=== PATIENT | male | born 1975 | race Caucasian/White ===

== ENCOUNTER 2018-06-23 09:43 | Day surgery (SDC) | payer BC ==
[~2018-06-23 09:43] MED LIST: Acetaminophen/HYDROcodone 325-5 MG Tab PO PRN; Bupivacaine 0.25%/EPINEPHrine 1:200,000 10 ML SDV INJECT ONE; Bupivacaine 0.25%/EPINEPHrine 1:200,000 10 ML SDV ONE; Lactated Ringers 1,000 ML IV SCH; ceFAZolin 2 GM in Premix Bag 1 BAG IV ONE
--- NOTE | 2018-06-23 10:36 | PCM.PREANE ---
Preanesthetic Assessment - Anesthesia/Transfusion/Family Hx Anesthesia History: Prior Anesthesia Without Reaction Other Type of Anesthesia Reaction Comment: states he has a high tolerace to anesthesia, takes alot Family History of Anesthesia Reaction: No Transfusion History: No Prior Transfusion(s) - Review of Systems General: No Symptoms Pulmonary: No Symptoms Cardiovascular: No Symptoms Gastrointestinal: No Symptoms Neurological: No Symptoms Other: Reports: None - Physical Assessment O2 Sat by Pulse Oximetry: 95 Respiratory Rate: 16 Vital Signs: Last Vital Signs Temp 97.2 F 06/23/18 09:56 Pulse 71 06/23/18 09:56 Resp 16 06/23/18 09:56 BP 132/95 H 06/23/18 09:56 Pulse Ox 95 06/23/18 09:56 Height: 6 ft 3 in Weight: 134.717 kg ASA Class: 1 Mental Status: Alert & Oriented x3 Airway Class: Mallampati = 1 Dentition: Reports: Normal Dentition ROM/Head Extension: Full Lungs: Clear to Auscultation, Normal Respiratory Effort Cardiovascular: Regular Rate, Regular Rhythm - Allergies Allergies/Adverse Reactions: Allergies Allergy/AdvReac Type Severity Reaction Status Date / Time No Known Allergies Allergy Verified 06/21/18 10:26 - Blood Blood Available: No - Anesthesia Plan Pre-Op Medication Ordered: None - Acknowledgements Anesthesia Type Planned: General Anesthesia Pt an Appropriate Candidate for the Planned Anesthesia: Yes Alternatives and Risks of Anesthesia Discussed w Pt/Guardian: Yes Pt/Guardian Understands and Agrees with Anesthesia Plan: Yes PreAnesthesia Questionnaire HEENT History: Reports: Other (See Below) Other HEENT History: wears glasses Respiratory History: Reports: Other (See Below) Other Respiratory History: "possible sleep apnea" has not been tested Gastrointestinal History: Reports: Other (See Below) Other Gastrointestinal History: occasional heartburn Genitourinary History: Reports: Renal Calculus Musculoskeletal History: Reports: Fracture Other Musculoskeletal History: multiple fx's, fingers, rinbs, ankle, arm, leg and skull fx Neurological History: Reports: Concussion, Head Trauma, Other (See Below) Other Neuro History: head injury resulting in skull fracture Endocrine/Metabolic History: Reports: Obesity/BMI 30+ - Past Surgical History Head Surgeries/Procedures: Reports: None Male Surgical History: Reports: Lithotripsy (ESWL) Musculoskeletal Surgical History: Reports: Arthroscopic Knee Other Musculoskeletal Surgeries/Procedures:: rt knee scope x2 - SUBSTANCE USE Smoking Status *Q: Never Smoker Recreational Drug Use History: No - HOME MEDS Home Medications: Home Meds . [No Known Home Meds] 06/21/18 [History] - CURRENT (IN HOUSE) MEDS Current Meds: Current Medications Hydrocodone Bitart/Acetaminophen ([place] 325-5 Mg) 1 - 2 tab PO Q4H PRN PRN Reason: Pain Lactated Ringer's (Ringers, Lactated) 1,000 mls @ 125 mls/hr IV ASDIRECTED SHARYN Last Admin: 06/23/18 10:01 Dose: 125 mls/hr Discontinued Medications Bupivacaine HCl/Epinephrine Bitart (Marcaine 0.25%/Epinephrine 1:200,000) 10 ml INJECT ONETIME ONE Stop: 06/23/18 08:01 Bupivacaine HCl/Epinephrine Bitart (Marcaine 0.25%/Epinephrine 1:200,000) Confirm Administered Dose 10 ml .ROUTE .STK-MED ONE Stop: 06/23/18 07:23 Cefazolin Sodium/Dextrose 2 gm (/ Premix) 50 mls @ 100 mls/hr IV ONETIME ONE Stop: 06/23/18 08:29
[2018-06-23] MEDS ORDERED: fentaNYL 100 MCG/2 ML SDV ONE ×2 (10:51→11:32)
[2018-06-23] MEDS ORDERED: Propofol 200 MG/20 ML SDV ONE ×2 (10:51→11:21)
[2018-06-23] MEDS ORDERED: Midazolam 1 MG/ML 2 ML SDV ONE (10:51)
[2018-06-23] MEDS ORDERED: Lidocaine 2% 5 ML SDV ONE (10:52)
[2018-06-23] MEDS ORDERED: Albuterol 0.083% 2.5 MG/3 ML Neb Soln NEB PRN (11:02)
[2018-06-23] MEDS ORDERED: 50% Dextrose in Water 50 ML Syringe IVPUSH PRN (11:02)
[2018-06-23] MEDS ORDERED: Naloxone 0.4 MG/ML Syringe IVPUSH PRN (11:02)
[2018-06-23] MEDS ORDERED: Atropine 1 MG/ML SDV IVPUSH PRN ×2 (11:02)
[2018-06-23] MEDS ORDERED: EPINEPHrine 1 MG/ML SDV IVPUSH PRN (11:02)
[2018-06-23] MEDS ORDERED: Sodium Chloride 0.9% 20 ML ONE (11:17)
[2018-06-23] MEDS ORDERED: ceFAZolin 1 GM Vial ONE (11:17)
[2018-06-23] MEDS ORDERED: Ondansetron 4 MG/2 ML SDV ONE (11:31)
[2018-06-23] MEDS ORDERED: Ketorolac 30 MG/ML SDV ONE (11:31)
[2018-06-23] MEDS ORDERED: Dexamethasone 4 MG/ML 5 ML MDV ONE (11:31)
[2018-06-23] MEDS: fentaNYL 100 MCG/2 ML SDV IVPUSH PRN ×2 (12:39→12:51)
--- NOTE | 2018-06-23 13:06 | PCM.POSTAN ---
POST ANESTHESIA ASSESSMENT - MENTAL STATUS Mental Status: Alert, Oriented - RESPIRATORY Respiratory Status: Respiratory Rate WNL, Airway Patent, O2 Saturation Stable - CARDIOVASCULAR CV Status: Pulse Rate WNL, Blood Pressure Stable - GASTROINTESTINAL GI Status: No Symptoms - POST OP HYDRATION Hydration Status: Adequate & Stable
--- NOTE | 2018-06-23 13:07 | PCM48HPAN ---
Post Anesthesia Note - EVALUATION WITHIN 48HRS OF ANESTHETIC Vital Signs in Normal Range: Yes Patient Participated in Evaluation: Yes Respiratory Function Stable: Yes Airway Patent: Yes Cardiovascular Function Stable: Yes Hydration Status Stable: Yes Pain Control Satisfactory: Yes Nausea and Vomiting Control Satisfactory: Yes Mental Status Recovered: Yes Resp Rate: 11
--- NOTE | 2018-06-24 07:40 | PCM.OPNOTE ---
- General Post-Op/Procedure Note Date of Surgery/Procedure: 06/23/18 Operative Procedure(s): left small finger PIP joint contracture release, tenolysis flexor tendons left small finger, repair central slip of extensor tendon left small finger and pin fixation for internal splinting left small finger. Pre Op Diagnosis: left small finger boutinere deformity with volar plate and PIP joint contracture - static Post-Op Diagnosis: Same Anesthesia Technique: General LMA, Local Primary Surgeon: Dionne Wall Operation Shift Supervisor: Meghan Torre Complications: None Condition: Good Free Text/Narrative:: Intake & Output 06/23/18 06/23/18 06/24/18 15:59 23:59 07:59 Intake Total 1100 Balance 1100
--- NOTE | 2018-06-26 23:43 | OR ---
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 PROCEDURE: 1. Left small finger PIP joint contracture release with release of the volar plate. 2. Tenolysis of flexor tendons to the left small finger, both the flexor digitorum superficialis and flexor digitorum profundus. 3. Repair of the central slip extensor tendon injury of the left small finger. 4. Pin fixation for internal splinting in the left small finger PIP joint. NUCLEAR REACTOR TECHNICIAN: DANIEL Blanco REASON FOR AND ROLE OF NUCLEAR REACTOR TECHNICIAN: Retraction, prepping, draping, positioning and closure assistance. ANESTHESIA: General LMA with local. INDICATIONS: Mr. 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 Risks and benefits of repair were discussed with him and he was in agreement to proceed. Risks were including, but not limited to, bleeding, infection, damage to underlying or overlying structures, possible need for future interventions, possible scarring. PROCEDURE IN DETAIL: After informed consent was obtained and placed on the chart, the patient was brought to the operating theater and laid in supine position. Attention was then paid after time-out was complete to confirm side and site. Once confirmed, the arm was prepped and draped in the normal fashion and 0.25% Marcaine with epinephrine was used in a field block. Once adequately anesthetized, the arm was exsanguinated and tourniquet was insufflated to 200 mmHg. Attention was then paid to the volar plate release. First, dissection was then carried in a Nuno style fashion through the skin and subcutaneous tissues with significant care to protect the neurovascular bundles. The flexor tendons were located significantly in scar tissue. These had to be freed appropriately and passed through range of motion to remove them from the adherent scar tissue surrounding both tendons. Once adequate tenolysis was completed of the flexor tendons, we could then move the tendons out of the way to access the volar plate. The volar plate was released using a #15 blade at the proximal aspect. Not complete release was appreciated and thus the checkrein ligament also had to be released. Once this was completed, the finger was put through range of motion and allowed to maintain in a straight position. Once adequate release, this wound was closed using a 5-0 nylon stitch in a horizontal mattress fashion. Attention was then paid to the dorsum of the finger and a curvilinear incision was made around the knuckle itself and dissection was carried through the skin and subcutaneous tissues until location of the central slip. It was significantly attenuated with migration of the extensor tendon laterally. The central slip was transected. There was a significant amount of scar tissue here. Fortunately, this precluded the need for tendon graft and thus the two sides of the extensor tendon were brought together using a 4-0 FiberWire stitch and scar tissue was also used for reinforcement over the top of this and this was closed in an interrupted and running fashion for a tendinous repair. Once this was completed, a 0.45 K-wire was then placed longitudinally down the DIP joint and PIP joint to allow the finger to be maintained in a straight position. There was significant memory of the joint and already was trying to contract despite complete release. Passive range of motion was intact. Once adequately fixated, the K-wire was dressed with Jurgan ball and the skin incisions again were closed with a 5-0 nylon stitch in a horizontal mattress fashion. Once adequately closed, they were dressed with Xeroform, fluffs, and a short-arm ulnar gutter splint. The patient tolerated this well. All counts and needles were correct at the end of the case. FOLLOWUP INSTRUCTIONS: The patient will see us in clinic in 10 to 14 days for custom splinting, sooner if any problems, questions, or concerns. The patient was given a prescription for pain control. CLARA / JENNIFER /[id number]
== END 2018-06-23 14:17 | disposition home or self-care (01) ==
LOC: MW.SDS 09:43
PROVIDERS: ATTEND Plastic Surgery
DX: M20.022 Boutonniere deformity of left finger(s) (principal); M24.542 Contracture, left hand; M54.16 Radiculopathy, lumbar region; E66.9 Obesity, unspecified; Z68.37 Body mass index [BMI] 37.0-37.9, adult
CPT/HCPCS: 26426; 26440; 26525; A9270; J0690; J1100; J1885; J2001; J2250; J2405; J2704; J3010; J3490; J7120

== ENCOUNTER 2020-08-03 13:36 | Emergency (ER) | payer BC ==
--- NOTE | 2020-08-03 13:39 | EDM.PDOC ---
ED HPI GENERAL MEDICAL PROBLEM - General Chief Complaint: General Stated Complaint: HIGH BP Time Seen by Provider: 08/03/20 13:38 Source of Information: Reports: Patient History Limitations: Reports: No Limitations - History of Present Illness INITIAL COMMENTS - FREE TEXT/NARRATIVE: 44-year-old male presents for high blood pressure. Patient notes that he was diagnosed with high blood pressure last week but was not started on any medications. 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 Was taking "a handful" of supplements and has gained roughly 30lbs in last 30 days. Stopped supplements yesterday. Noted new onset LE swelling yesterday which has since resolved. Prior to arrival he noted shortness of breath, headache, back pain. Took blood pressure and it was in the systolic 180s prompting him to seek medical attention. Denies chest pain. Head Pain Score (Numeric/FACES): 8 - Related Data Allergies Allergy/AdvReac Type Severity Reaction Status Date / Time No Known Allergies Allergy Verified 08/03/20 13:45 Home Meds: Home Meds . [No Known Home Meds] 08/03/20 [History] Past Medical History HEENT History: Reports: Other (See Below) Other HEENT History: wears glasses Respiratory History: Reports: Other (See Below) Other Respiratory History: "possible sleep apnea" has not been tested Gastrointestinal History: Reports: Other (See Below) Other Gastrointestinal History: occasional heartburn Genitourinary History: Reports: Renal Calculus Musculoskeletal History: Reports: Fracture Other Musculoskeletal History: multiple fx's, fingers, rinbs, ankle, arm, leg and skull fx Neurological History: Reports: Concussion, Head Trauma, Other (See Below) Other Neuro History: head injury resulting in skull fracture Endocrine/Metabolic History: Reports: Obesity/BMI 30+ - Past Surgical History Head Surgeries/Procedures: Reports: None Male Surgical History: Reports: Lithotripsy (ESWL) Musculoskeletal Surgical History: Reports: Arthroscopic Knee Other Musculoskeletal Surgeries/Procedures:: rt knee scope x2 ED ROS GENERAL - Review of Systems Review Of Systems: Comprehensive ROS is negative, except as noted in HPI. ED EXAM, GENERAL - Physical Exam Exam: See Below Exam Limited By: No Limitations General Appearance: Alert, WD/WN, No Apparent Distress Throat/Mouth: Normal Voice, No Airway Compromise Head: Atraumatic, Normocephalic Neck: Normal Inspection Respiratory/Chest: No Respiratory Distress, Lungs Clear, Normal Breath Sounds, No Accessory Muscle Use Cardiovascular: Normal Peripheral Pulses, Regular Rate, Rhythm, No Edema Extremities: Normal Inspection Neurological: Alert, CN II-XII Intact, Normal Gait, No Motor/Sensory Deficits Psychiatric: Normal Affect, Normal Mood Skin Exam: Warm, Dry, Intact, Normal Color #1 Interpretation EKG Date: 08/03/20 Time: 13:48 Rhythm: NSR Rate (Beats/Min): 87 [place]: Normal P-Wave: Present QRS: Normal ST-T: Normal QT: Normal VA/PQ Interval: 160 Comparison: NA - No Prior EKG EKG Interpretation Comments: no ischemic changes, poor baseline Course - Vital Signs Last Recorded V/S: Last Vital Signs Temp 98 F 08/03/20 13:46 Pulse 94 08/03/20 14:25 Resp 18 08/03/20 14:25 BP 149/94 H 08/03/20 14:25 Pulse Ox 95 08/03/20 14:25 - Orders/Labs/Meds Orders: Active Orders 24 hr Category Date Time Status EKG Documentation Completion [RC] STAT Care 08/03/20 13:42 Active CORONAVIRUS COVID-19 ALE [MOLEC] Stat Lab 08/03/20 14:33 Received Sodium Chloride 0.9% [Saline Flush] Med 08/03/20 13:42 Active 10 ml FLUSH ASDIRECTED PRN Sodium Chloride 0.9% [Saline Flush] Med 08/03/20 13:42 Active 2.5 ml FLUSH ASDIRECTED PRN Saline Lock Insert [OM.PC] Stat Oth 08/03/20 13:42 Ordered Medication Orders Sodium Chloride (Sodium Chloride 0.9% 10 Ml Syringe) 10 ml FLUSH ASDIRECTED PRN PRN Reason: Keep Vein Open Last Admin: 08/03/20 14:22 Dose: 10 ml Documented by: THOMAS Sodium Chloride (Sodium Chloride 0.9% 2.5 Ml Syringe) 2.5 ml FLUSH ASDIRECTED PRN PRN Reason: Keep Vein Open Last Admin: 08/03/20 14:22 Dose: 2.5 ml Documented by: THOMAS Labs: Laboratory Tests 08/03/20 08/03/20 Range/Units 13:52 13:52 WBC 7.07 (4.0-11.0) K/uL RBC 5.46 (4.50-5.90) M/uL Hgb 16.4 (13.0-17.0) g/dL Hct 48.6 (38.0-50.0) % MCV 89.0 (80.0-98.0) fL MCH 30.0 (27.0-32.0) pg MCHC 33.7 (31.0-37.0) g/dL RDW Std Deviation 43.6 (28.0-62.0) fl RDW Coeff of John 13 (11.0-15.0) % Plt Count 276 (150-400) K/uL MPV 9.60 (7.40-12.00) fL Neut % (Auto) 75.2 (48.0-80.0) % Lymph % (Auto) 12.9 L (16.0-40.0) % [place] % (Auto) 10.0 (0.0-15.0) % Eos % (Auto) 1.3 (0.0-7.0) % Baso % (Auto) 0.6 (0.0-1.5) % Neut # (Auto) 5.3 (1.4-5.7) K/uL Lymph # (Auto) 0.9 (0.6-2.4) K/uL [place] # (Auto) 0.7 (0.0-0.8) K/uL Eos # (Auto) 0.1 (0.0-0.7) K/uL Baso # (Auto) 0.0 (0.0-0.1) K/uL Sodium 139 (136-148) mmol/L Potassium 4.4 (3.5-5.1) mmol/L Chloride 103 (98-107) mmol/L Carbon Dioxide 28.1 (21.0-32.0) mmol/L BUN 16 (7.0-18.0) mg/dL Creatinine 1.2 (0.8-1.3) mg/dL Est Cr Clr Drug Dosing 93.89 mL/min Estimated GFR (MDRD) > 60.0 ml/min Glucose 124 H (74-106) mg/dL Calcium 8.7 (8.5-10.1) mg/dL Total Bilirubin 0.7 (0.2-1.0) mg/dL AST 82 H (15-37) IU/L ALT 97 H (14-63) IU/L Alkaline Phosphatase 62 (46-116) U/L Creatine Kinase 350 H (26-308) U/L Troponin I 0.177 H* (0.000-0.056) ng/mL Total Protein 7.2 (6.4-8.2) g/dL Albumin 3.4 (3.4-5.0) g/dL Globulin 3.8 (2.6-4.0) g/dL Albumin/Globulin Ratio 0.9 (0.9-1.6) Meds: Medications Generic Name Dose Route Start Last Admin Trade Name Freq PRN Reason Stop Dose Admin Sodium Chloride 10 ml 08/03/20 13:42 08/03/20 14:22 Sodium Chloride 0.9% 10 Ml Syringe FLUSH 10 ml ASDIRECTED PRN Administration Keep Vein Open Sodium Chloride 2.5 ml 08/03/20 13:42 08/03/20 14:22 Sodium Chloride 0.9% 2.5 Ml Syringe FLUSH 2.5 ml ASDIRECTED PRN Administration Keep Vein Open Discontinued Medications Generic Name Dose Route Start Last Admin Trade Name Freq PRN Reason Stop Dose Admin Ketorolac Tromethamine 15 mg 08/03/20 13:53 08/03/20 14:21 Ketorolac 30 Mg/Ml Sdv IVPUSH 08/03/20 13:54 15 mg ONETIME ONE Administration Labetalol HCl 10 mg 08/03/20 13:53 08/03/20 14:22 Labetalol 100 Mg/20 Ml Mdv IVPUSH 08/03/20 13:54 10 mg ONETIME ONE Administration Protocol - Re-Assessments/Exams Free Text/Narrative Re-Assessment/Exam: 08/03/20 13:56 We will get basic labs including cardiac enzymes, total CPK. EKG is nonische monique. Will get chest x-ray. Will give small dose labetalol, Toradol. 08/03/20 14:39 Patient's troponin elevated at 0.177. Will transfer to [facility] for further work-up. On repeat history with patient alone in the room he notes that he is on chronic testosterone replacement therapy but no new steroids. Departure - Departure Time of Disposition: 14:40 Disposition: DC/Tfer to Acute Hospital 02 Condition: Fair Clinical Impression: NSTEMI (non-ST elevated myocardial infarction) - Discharge Information Referrals: Dimitri Tidwell MD [Primary Care Provider] - Forms: ED Department Discharge Sepsis Event Note (ED) - Focused Exam Vital Signs: Vital Signs Temp Pulse Resp BP Pulse Ox 08/03/20 14:25 94 18 149/94 H 95 08/03/20 13:46 98 F 91 18 159/106 H 97 - My Orders Last 24 Hours: My Active Orders 08/03/20 13:42 EKG Documentation Completion [RC] STAT Sodium Chloride 0.9% [Saline Flush] 10 ml FLUSH ASDIRECTED PRN Sodium Chloride 0.9% [Saline Flush] 2.5 ml FLUSH ASDIRECTED PRN Saline Lock Insert [OM.PC] Stat 08/03/20 14:33 CORONAVIRUS COVID-19 ALE [MOLEC] Stat - Assessment/Plan Last 24 Hours: My Active Orders 08/03/20 13:42 EKG Documentation Completion [RC] STAT Sodium Chloride 0.9% [Saline Flush] 10 ml FLUSH ASDIRECTED PRN Sodium Chloride 0.9% [Saline Flush] 2.5 ml FLUSH ASDIRECTED PRN Saline Lock Insert [OM.PC] Stat 08/03/20 14:33 CORONAVIRUS COVID-19 ALE [MOLEC] Stat
[2020-08-03] MEDS ORDERED: Sodium Chloride 0.9% 2.5 ML Syringe FLUSH PRN (13:42)
[2020-08-03] MEDS ORDERED: Sodium Chloride 0.9% 10 ML Syringe FLUSH PRN (13:42)
[2020-08-03] MEDS ORDERED: Ketorolac 30 MG/ML SDV IVPUSH ONE (13:53)
[2020-08-03] MEDS ORDERED: Labetalol 100 MG/20 ML MDV IVPUSH ONE ×2 (13:53→14:47)
[2020-08-03 14:21] LABS: BLOOD UREA NITROGEN,BUN 16 mg/dL (7.0-18.0); CARBON DIOXIDE,CO2 28.1 mmol/L (21.0-32.0); CHLORIDE,CL 103 mmol/L (98-107); GLUCOSE RANDOM 124 mg/dL (74-106); POTASSIUM,K 4.4 mmol/L (3.5-5.1); SODIUM,NA 139 mmol/L (136-148)
--- NOTE | 2020-08-03 14:28 | CR ---
INDICATION: High blood pressure, shortness of breath TECHNIQUE: Chest 1 view. COMPARISON: None available FINDINGS: The heart is normal in size. The pulmonary vasculature is within normal limits. The lungs are clear. The bones are unremarkable. IMPRESSION: No acute process. Dictated by Cecily Baker MD @ Aug 03 2020 2:25PM Signed by Dr. Cecily Baker @ Aug 03 2020 2:26PM
== END 2020-08-03 15:30 ==
LOC: MW.ED 13:36
DX: I21.4 Non-ST elevation (NSTEMI) myocardial infarction (principal); E66.9 Obesity, unspecified; Z68.29 Body mass index [BMI] 29.0-29.9, adult
CPT/HCPCS: 36415; 71045; 80053; 82550; 84484; 85025; 87635; 93005; 96374; 96375; 99285; J1885; J3490; U0002

== ENCOUNTER 2021-01-17 10:48 | Emergency (ER) | payer BC ==
--- NOTE | 2021-01-17 11:12 | EDM.PDOC ---
ED HPI GENERAL MEDICAL PROBLEM - General Chief Complaint: General Stated Complaint: CONGESTION Time Seen by Provider: 01/17/21 10:56 - History of Present Illness INITIAL COMMENTS - FREE TEXT/NARRATIVE: 45-year-old male presenting with 3 to 4 weeks of sore throat and cough productive of sputum that is now faintly red-tinged. No fevers. Symptoms are associated with hoarse voice. No fevers no neck pain or stiffness no significa nt shortness of breath. Patient states that symptoms started when he was traveling and then got worse when he went to altitude. He has had persistent productive cough since that time. He denies prior history of asthma but does note a history of pneumonia in the past. Patient had Covid approximately a year ago he has no myalgias vomiting or any other symptoms. Symptoms are constant they are without exacerbating or alleviating factors radiation or other associated symptoms and he has not been evaluated for the symptoms since they started. Left Lower Abdomen Pain Score (Numeric/FACES): 2 - Related Data Allergies Allergy/AdvReac Type Severity Reaction Status Date / Time No Known Allergies Allergy Verified 01/17/21 11:00 Home Meds: Home Meds Albuterol Sulfate [Albuterol Sulfate HFA] 2 puff INH Q4H 5 Days #1 ea 01/17/21 [Rx] Pantoprazole [ProTONIX] 40 mg PO DAILY 01/17/21 [History] predniSONE 40 mg PO WITHBREAKFAST 5 Days #10 tab 01/17/21 [Rx] Past Medical History - Past Health History Medical/Surgical History: Denies Medical/Surgical History HEENT History: Reports: Other (See Below) Other HEENT History: wears glasses Respiratory History: Reports: Other (See Below) Other Respiratory History: "possible sleep apnea" has not been tested Gastrointestinal History: Reports: Other (See Below) Other Gastrointestinal History: occasional heartburn Genitourinary History: Reports: Renal Calculus Musculoskeletal History: Reports: Fracture Other Musculoskeletal History: multiple fx's, fingers, rinbs, ankle, arm, leg and skull fx Neurological History: Reports: Concussion, Head Trauma, Other (See Below) Other Neuro History: head injury resulting in skull fracture Endocrine/Metabolic History: Reports: Obesity/BMI 30+ - Infectious Disease History Infectious Disease History: Reports: None - Past Surgical History Head Surgeries/Procedures: Reports: None Male Surgical History: Reports: Lithotripsy ([facility]) Musculoskeletal Surgical History: Reports: Arthroscopic Knee Other Musculoskeletal Surgeries/Procedures:: rt knee scope x2 Social & Family History - Tobacco Use Tobacco Use Status *Q: Never Tobacco User - Caffeine Use Caffeine Use: Reports: None - Recreational Drug Use Recreational Drug Use: No ED ROS GENERAL - Review of Systems Review Of Systems: See Below Free Text/Narrative/Comment: General: No fever. Skin: No rash. Eyes: No vision problems. ENT: No sore throat. Neck: No neck stiffness. Respiratory: Per HPI Cardiac: No chest pain. Gastrointestinal: No nausea, vomiting or abdominal pain. Urinary: No dysuria. Musculoskeletal: No myalgias/arthralgias. Neurologic: No headache. ED EXAM, GENERAL - Physical Exam Exam: See Below Free Text/Narrative:: General Appearance: No acute distress, appears comfortable Skin: No rash HEENT: Normocephalic/atraumatic, sclera anicteric, mucous membranes moist Neck: Normal range of motion Chest and Lungs: Normal work of breathing, faint end expiratory wheezing in the bilateral bases faint rhonchi as well Cardiovascular: Regular rate and rhythm, no murmur Abdomen: Soft, non-tender Back: Normal Musculoskeletal: No edema or tenderness Neurologic: Awake, alert, no obvious deficits, moving all extremities Psychiatric: Appropriate, cooperative Course - Vital Signs Last Recorded V/S: Last Vital Signs Temp 98 F 01/17/21 11:01 Pulse 78 01/17/21 11:01 Resp 18 01/17/21 11:01 BP 144/97 H 01/17/21 11:01 Pulse Ox 96 01/17/21 11:01 - Orders/Labs/Meds Orders: Active Orders 24 hr Category Date Time Status Chest 2V [CR] Stat Exams 01/17/21 11:08 Taken Departure - Departure Time of Disposition: 12:15 Disposition: Home, Self-Care 01 Condition: Good Clinical Impression: Bronchitis - Discharge Information *PRESCRIPTION DRUG MONITORING PROGRAM REVIEWED*: Not Applicable *COPY OF PRESCRIPTION DRUG MONITORING REPORT IN PATIENT PANTERA: Not Applicable Prescriptions: Albuterol Sulfate [Albuterol Sulfate HFA] 2 puff INH Q4H 5 Days #1 ea predniSONE 40 mg PO WITHBREAKFAST 5 Days #10 tab Instructions: Acute Bronchitis, Adult, [id number] Forms: ED Department Discharge Additional Instructions: Your chest x-ray does not show any pneumonia based on my evaluation. I am still waiting for the radiologist to officially read it. If they disagree then that there is a pneumonia present I will call you and send a prescription for an antibiotic to the pharmacy. I recommend that you take 2 puffs from the albuterol inhaler every 4-6 hours while you are awake for the next 5 days and that you take 40 mg of prednisone once daily for the next 5 days. If your symptoms persist please follow-up with your primary care doctor if you do not have a primary care doctor you can be seen one of the clinics listed below. [facility] [address] [place] [address] [id number] [address] [id number] The following information is given to patients seen in the emergency department who are being discharged to home. This information is to outline your options for follow-up care. We provide all patients seen in our emergency department with a follow-up referral. The need for follow-up, as well as the timing and circumstances, are variable depending upon the specifics of your emergency department visit. If you don't have a primary care physician on staff, we will provide you with a referral. We always advise you to contact your personal physician following an emergency department visit to inform them of the circumstance of the visit and for follow-up with them and/or the need for any referrals to a consulting specialist. The emergency department will also refer you to a specialist when appropriate. This referral assures that you have the opportunity for follow-up care with a specialist. All of these measure are taken in an effort to provide you with optimal care, which includes your follow-up. Under all circumstances we always encourage you to contact your private physician who remains a resource for coordinating your care. When calling for follow-up care, please make the office aware that this follow-up is from your recent emergency room visit. If for any reason you are refused follow-up, please contact the [facility] Emergency Department at and asked to speak to the emergency department charge nurse. Sepsis Event Note (ED) - Evaluation Sepsis Screening Result: No Definite Risk - Focused Exam Vital Signs: Vital Signs Temp Pulse Resp BP Pulse Ox 01/17/21 11:01 98 F 78 18 144/97 H 96 - My Orders Last 24 Hours: My Active Orders 01/17/21 11:08 Chest 2V [CR] Stat - Assessment/Plan Last 24 Hours: My Active Orders 01/17/21 11:08 Chest 2V [CR] Stat Assessment:: 45-year-old male presenting with signs and symptoms most consistent with a bronchitis versus pneumonia. Chest x-ray to evaluate for any findings of pneumonia if there is pneumonia on x-ray then would start antibiotics. If not then would do burst of prednisone and albuterol inhaler. No fever no other symptoms that would suggest Covid and patient has been sick for nearly a month he also had diagnosed Covid a year ago. No significant abdominal symptoms no findings that suggest meningitis or encephalitis he does have a bit of a hoarse voice but this is related to his coughing he has no stridor he has no submental or sublingual swelling no trismus nothing that suggest a deep space infection of the head or neck. He is nontoxic and clinically well-appearing with good oxygenation. 1215: Con't to await CXR read. No focal infiltrate or pneumothorax based on my preliminary interpretation. Will send Rx for albuterol inhaler and prednisone. If CXR is over read as PNA then will call in an Rx. Patient agreeable with plan of care.
--- NOTE | 2021-01-17 12:21 | CR ---
INDICATION: Persistent cough. Bibasilar wheezing. COMPARISON: : 03 August 2020 TECHNIQUE: Two view chest. FINDINGS: The lungs are clear. The heart, mediastinum and pulmonary vessels are of normal size. There is no evidence of pleural disease. IMPRESSION: Negative chest. Dictated by Jonah Sultana MD @ 01/17/2021 12:20:19 PM (Electronically Signed)
== END 2021-01-17 12:26 | disposition home or self-care (01) ==
LOC: MW.ED 10:48
DX: J40 Bronchitis, not specified as acute or chronic (principal); E66.9 Obesity, unspecified; Z68.38 Body mass index [BMI] 38.0-38.9, adult
CPT/HCPCS: 71046; 71046-26; 99283-25

== ENCOUNTER 2023-10-22 11:09 | Emergency (ER) | payer BC ==
[2023-10-22 11:53] LABS: BASOPHILS ABSOLUTE AUTO 0.04 K/uL (0.00-0.20); BASOPHILS PERCENT AUTO 0.6 % (0.0-1.0); EOSINOPHILS ABSOLUTE AUTO 0.03 K/uL (0.00-0.45); EOSINOPHILS PERCENT AUTO 0.5 % (0.0-6.0); HEMATOCRIT 45.5 % (42.0-52.0); HEMOGLOBIN 15.5 g/dL (14.0-18.0); IMMATURE GRAN ABSOLUTE AUTO 0.01 K/uL (0.00-0.05); IMMATURE GRAN PERCENT AUTO 0.2 % (0.0-0.4); LYMPHOCYTES ABSOLUTE AUTO 0.78 K/uL (1.00-4.80); LYMPHOCYTES PERCENT AUTO 12.1 % (24.0-44.0); MEAN CORPUSCULAR HEMOGLOBIN 31.3 pg (28.0-32.0); MEAN CORPUSCULAR HGB CONC 34.1 g/dL (32.0-36.0); MEAN CORPUSCULAR VOLUME 91.7 fL (83.0-99.0); MEAN PLATELET VOLUME 9.5 fL (9.4-12.4); MONOCYTES ABSOLUTE AUTO 0.87 K/uL (0.00-0.80); MONOCYTES PERCENT AUTO 13.5 % (0.0-8.0); NEUTROPHILS ABSOLUTE AUTO 4.73 K/uL (1.80-7.70); NEUTROPHILS PERCENT AUTO 73.1 % (41.0-71.0); PLATELET COUNT,PLT 282 K/uL (150-400); RED BLOOD CELL COUNT 4.96 M/uL (4.52-5.90); WHITE BLOOD CELL COUNT,WBC 6.46 K/uL (3.9-11.3)
[2023-10-22] MEDS: diphenhydrAMINE 50 MG/ML SDV IVPUSH STA (12:05)
[2023-10-22] MEDS: Albuterol/Ipratropium 3.0-0.5 MG/3 ML Neb Soln NEB STA (12:05)
[2023-10-22] MEDS: Ketorolac 30 MG/ML SDV IVPUSH STA (12:05)
[2023-10-22] MEDS: Prochlorperazine 10 MG/2 ML SDV IVPUSH STA (12:06)
[2023-10-22] MEDS: Sodium Chloride 0.9% 1,000 ML IV STA (12:07)
[2023-10-22 12:09] LABS: INR 1.04 (0.86-1.11); PTT,PARTIAL THROMBOPLSTIN TIME 25.7 SEC (23.9-30.7)
[2023-10-22 12:21] LABS: A/G RATIO 0.9 (0.9-1.6); ALBUMIN 3.4 g/dL (3.4-5.0); BILIRUBIN TOTAL 0.5 mg/dL (0.2-1.0); CALCIUM 8.4 mg/dL (8.5-10.1); CREATININE 1.1 mg/dL (0.8-1.3); EST CRCL DRUG DOSING (CG) 99.22 mL/min; POTASSIUM,K 3.8 mmol/L (3.5-5.1); PROTEIN TOTAL,TP 7.3 g/dL (6.4-8.2)
[2023-10-22] MEDS: LORazepam 2 MG/ML SDV IVPUSH STA (12:52)
== END 2023-10-22 13:59 | disposition home or self-care (01) ==
LOC: MW.ED 11:09
DX: G43.909 Migraine, unspecified, not intractable, without status migrainosus (principal); J30.2 Other seasonal allergic rhinitis; R05.1 Acute cough; E66.9 Obesity, unspecified; Z68.38 Body mass index [BMI] 38.0-38.9, adult; Z86.16 Personal history of COVID-19; Z75.8 Other problems related to medical facilities and other health care; Z79.899 Other long term (current) drug therapy
CPT/HCPCS: 36415; 71046; 80053; 83690; 84484; 85025; 85610; 85730; 93005; 94640; 96361; 96374; 96375; 99285; J0780; J1100; J1200; J1885; J2060; J7030; J7620-GY

== ENCOUNTER 2024-10-30 12:32 | Emergency (ER) | payer BC ==
[2024-10-30 13:16] LABS: BASOPHILS ABSOLUTE AUTO 0.07 K/uL (0.00-0.20); BASOPHILS PERCENT AUTO 1.0 % (0.0-1.0); EOSINOPHILS ABSOLUTE AUTO 0.17 K/uL (0.00-0.45); EOSINOPHILS PERCENT AUTO 2.5 % (0.0-6.0); IMMATURE GRAN ABSOLUTE AUTO 0.03 K/uL (0.00-0.05); IMMATURE GRAN PERCENT AUTO 0.4 % (0.0-0.4); LYMPHOCYTES ABSOLUTE AUTO 1.02 K/uL (1.00-4.80); LYMPHOCYTES PERCENT AUTO 15.0 % (24.0-44.0); MEAN PLATELET VOLUME 9.4 fL (9.4-12.4); MONOCYTES ABSOLUTE AUTO 0.63 K/uL (0.00-0.80); MONOCYTES PERCENT AUTO 9.2 % (0.0-8.0); NEUTROPHILS ABSOLUTE AUTO 4.90 K/uL (1.80-7.70); NEUTROPHILS PERCENT AUTO 71.9 % (41.0-71.0); NRBC ABSOLUTE 0.00 K/uL (0.00-0.02); NRBC PERCENT 0.0 /100WBC (0.0-0.2); PLATELET COUNT,PLT 273 K/uL (150-400); RED BLOOD CELL COUNT 5.77 M/uL (4.52-5.90); WHITE BLOOD CELL COUNT,WBC 6.82 K/uL (3.9-11.3)
[2024-10-30 13:46] LABS: A/G RATIO 1.1 (0.9-1.6); ALANINE AMINOTRANSFERASE,ALT 63.0 IU/L (14-63); ASPARTATE AMNIOTRANSFERASE,AST 37.0 IU/L (15-37); BILIRUBIN TOTAL 0.5 mg/dL (0.2-1.0); BLOOD UREA NITROGEN,BUN 19.0 mg/dL (7.0-18.0); CARBON DIOXIDE,CO2 24.9 mmol/L (21.0-32.0); CHLORIDE,CL 104.0 mmol/L (98-107); CREATININE 1.2 mg/dL (0.8-1.3); EST CRCL DRUG DOSING (CG) 89.98 mL/min; GLUCOSE RANDOM 126.0 mg/dL (74-106); POTASSIUM,K 4.3 mmol/L (3.5-5.1); PROTEIN TOTAL,TP 6.8 g/dL (6.4-8.2); SODIUM,NA 136.0 mmol/L (136-148)
[2024-10-30 13:50] LABS: ESTIMATED GFR 75.0 mL/min (>60)
== END 2024-10-30 14:14 | disposition home or self-care (01) ==
LOC: MW.ED 12:32
DX: I10 Essential (primary) hypertension (principal); Z79.899 Other long term (current) drug therapy
CPT/HCPCS: 36415; 80053; 84484; 85025; 93005; 99283; A9270